=== PATIENT | female | born 1935 | race Caucasian/White ===

== ENCOUNTER 2017-01-06 11:08 | Outpatient (CLI) | payer MEDICARE | END 2017-01-06 11:09 | DX: Z01.812 Encounter for preprocedural laboratory examination (principal) ==

== ENCOUNTER 2017-01-07 08:00 | Outpatient (CLI) | payer MEDICARE | END 2017-01-07 08:01 | disposition home or self-care (01) | DX: D75.89 Other specified diseases of blood and blood-forming organs (principal); Z01.812 Encounter for preprocedural laboratory examination; Z47.2 Encounter for removal of internal fixation device ==

== ENCOUNTER 2017-02-16 06:11 | Inpatient (IN) | payer MEDICARE ==
[2017-02-16] MEDS ORDERED: ceFAZolin 2 GM/50 ML 50 ML IV ONE (07:05)
[2017-02-16] MEDS ORDERED: LACTATED RINGERS 1,000 ML IV ONE ×3 (07:09→09:35)
[2017-02-16] MEDS ORDERED: fentaNYL 100 MCG/2 ML VIAL IVP ONE (08:00)
[2017-02-16] MEDS ORDERED: LIDOCAINE-MPF 2% 5 ML VIAL IM ONE (08:00)
[2017-02-16] MEDS ORDERED: EPINEPHrine 1 MG/ML AMP SUBQ ONE (08:00)
[2017-02-16] MEDS ORDERED: ACETAMINOPHEN 1,000 MG/100 ML VIAL IV ONE (08:00)
[2017-02-16] MEDS ORDERED: MIDAZOLAM 2 MG/2 ML VIAL IVP ONE (08:00)
[2017-02-16] MEDS ORDERED: ePHEDrine 50 MG/ML AMP IVP ONE (08:00)
[2017-02-16] MEDS ORDERED: MORPHINE PF 5 MG/10 ML AMP SUBQ ONE ×2 (08:00)
[2017-02-16] MEDS ORDERED: PROPOFOL 200 MG/20 ML VIAL IVP ONE (08:00)
[2017-02-16] MEDS ORDERED: ROCURONIUM 50 MG/5 ML VIAL IVP ONE (08:00)
[2017-02-16] MEDS ORDERED: GLYCOPYRROLATE 1 MG/5 ML VIAL IVP ONE (08:00)
[2017-02-16] MEDS ORDERED: ROPIVACAINE 0.2% PF 20 ML AMPULE SUBQ ONE (08:01)
[2017-02-16] MEDS ORDERED: KETOROLAC 15 MG/ML VIAL IM ONE (08:01)
[2017-02-16] MEDS ORDERED: BUPIVACAINE 0.5%-EPI 1:200000 PF 30 ML VIAL SUBQ ONE ×2 (08:02)
--- NOTE | 2017-02-16 11:24 | XRAY Report ---
INTRAOPERATIVE RIGHT HIP: 02/16/2017 CLINICAL INDICATION: Hardware removal. FINDINGS: Intraoperative imaging was obtained during right hip hardware removal. One spot image obtained; sixteen seconds of fluoroscopy time was provided to Dr. Starks. IMPRESSION: INTRAOPERATIVE IMAGING OF RIGHT HIP HARDWARE REMOVAL. JOB #: [id number] EXT JOB #:[id number]
[2017-02-16] MEDS ORDERED: BISACODYL 10 MG SUPP PR PRN (12:06)
[2017-02-16] MEDS ORDERED: PROCHLORPERAZINE 10 MG/2 ML VIAL IVP PRN (12:06)
[2017-02-16] MEDS ORDERED: HYDROmorphone 1 MG/ML SYRINGE IVP PRN (12:06)
[2017-02-16] MEDS ORDERED: oxyCOD/ACETAMIN 5 MG/325 MG TABLET PO PRN (12:06)
[2017-02-16] MEDS ORDERED: BISACODYL 5 MG TABLET PO PRN (12:06)
[2017-02-16] MEDS ORDERED: DOCUSATE SODIUM 100 MG CAPSULE PO PRN (12:06)
[2017-02-16] MEDS ORDERED: ACETAMINOPHEN 325 MG TABLET PO PRN (12:06)
[2017-02-16] MEDS ORDERED: diphenhydrAMINE 25 MG CAPSULE PO PRN (12:06)
[2017-02-16] MEDS ORDERED: ONDANSETRON 4 MG/2 ML VIAL IVP PRN (12:06)
--- NOTE | 2017-02-16 12:24 | OPERATIVE REPORT ---
Operative Report - General Admit Date: 02/16/17 Procedure Date: 02/16/17 Planned Procedure: Remove IM Nail Right Femur, Right Total Knee Arthroplasty Pre-Op Diagnosis: Right Knee Osteoarthritis Post Op Diagnosis: Same - Procedure Note Primary Surgeon: Leland Starks MD Anesthesia Provider: Nicole Chand CRNA Anesthesia Technique: General ET tube, Local, Regional block Estimated Blood Loss (in cc): 200 Complications: None. - Other Other Information/Narrative: Implants; Vishal Persona Knee: Size 8 Femoral Component.' Size E Tibial Tray 10 mm PS UHMWPE Tibial Insert 8.5 x 32 mm UHMWPE Patella Button Palacos Cement w/ Gentamycin Fluids: 2800 mL LR. Urine: Adequate. Tourniquet: Right Thigh 2 300 mm Hg x 120 minutes total without complication. Condition: Stable Disposition: PACU >> MedSurg.
[2017-02-16] MEDS: fentaNYL 100 MCG/2 ML VIAL ONE ×2 (12:40→12:45)
--- NOTE | 2017-02-16 13:06 | XRAY Report ---
TWO-VIEW RIGHT KNEE: 02/16/2017 CLINICAL INDICATION: Post-op knee replacement and hardware removal. FINDINGS: Frontal and lateral views of the right knee demonstrate a total knee replacement. Femoral IM gage has been removed. There is no evidence of acute fracture or immediate hardware complication. Subcutaneous gas is noted. IMPRESSION: EXPECTED POSTOPERATIVE APPEARANCE OF RIGHT KNEE REPLACEMENT, WITH RIGHT FEMORAL IM GAGE R CAMERONVAL. JOB #: [id number] EXT JOB #:[id number]
[2017-02-16] MEDS: D5.45NS W/20 MEQ KCL 1,000 ML IV SCH (13:36)
[2017-02-16] MEDS: ACETAMINOPHEN 1,000 MG/100 ML 100 ML IV PRN (13:41)
[2017-02-16] MEDS: SODIUM CHLORIDE FLUSH 0.9% 10 ML SYRINGE IVP SCH ×2 (14:52→22:03)
[2017-02-16] MEDS: ceFAZolin 2 GM/50 ML 50 ML IV SCH (17:01)
[2017-02-17] MEDS: ceFAZolin 2 GM/50 ML 50 ML IV SCH (00:20)
[2017-02-17] MEDS: D5.45NS W/20 MEQ KCL 1,000 ML IV SCH ×2 (00:21→10:22)
[2017-02-17] MEDS: SODIUM CHLORIDE FLUSH 0.9% 10 ML SYRINGE IVP SCH ×3 (06:10→21:19)
[2017-02-17] MEDS: ACETAMINOPHEN 1,000 MG/100 ML 100 ML IV PRN (06:10)
[2017-02-17] MEDS: KETOROLAC 15 MG/ML VIAL IVP PRN ×2 (07:58→17:51)
[2017-02-17 10:05] LABS: HCT - HEMATOCRIT 29.9 % (37.0-47.0); HGB - HEMOGLOBIN 10.2 g/dL (12.0-16.0)
[2017-02-17] MEDS: TIMOLOL 0.25% OPHTH DROPS EACHEYE SCH (10:21)
[2017-02-17] MEDS: ENOXAPARIN 40 MG/0.4 ML SYRINGE SUBQ SCH (10:22)
[2017-02-17] MEDS: SODIUM CHLORIDE FLUSH 0.9% 10 ML SYRINGE IVP PRN (17:52)
[2017-02-17] MEDS: traMADol 50 MG TABLET PO PRN (21:19)
[2017-02-18] MEDS: KETOROLAC 15 MG/ML VIAL IVP PRN ×2 (00:09→11:40)
[2017-02-18] MEDS: SODIUM CHLORIDE FLUSH 0.9% 10 ML SYRINGE IVP PRN (00:10)
[2017-02-18] MEDS: traMADol 50 MG TABLET PO PRN (06:41)
[2017-02-18] MEDS: SODIUM CHLORIDE FLUSH 0.9% 10 ML SYRINGE IVP SCH ×3 (06:41→17:28)
[2017-02-18] MEDS: TIMOLOL 0.25% OPHTH DROPS EACHEYE SCH (10:09)
[2017-02-18] MEDS: ENOXAPARIN 40 MG/0.4 ML SYRINGE SUBQ SCH (10:12)
[2017-02-18] MEDS: SENNA 8.6 MG TABLET PO PRN (17:25)
[2017-02-18] MEDS: TIMOLOL OPTH EACHEYE SCH (17:28)
[2017-02-18] MEDS: DORZOLAMIDE EACHEYE SCH (17:28)
[2017-02-19] MEDS: traMADol 50 MG TABLET PO PRN ×3 (02:40→17:12)
[2017-02-19] MEDS: KETOROLAC 15 MG/ML VIAL IVP PRN (05:53)
[2017-02-19] MEDS: SODIUM CHLORIDE FLUSH 0.9% 10 ML SYRINGE IVP SCH ×3 (05:53→21:50)
[2017-02-19] MEDS: SODIUM CHLORIDE FLUSH 0.9% 10 ML SYRINGE IVP PRN (05:54)
[2017-02-19] MEDS: ENOXAPARIN 40 MG/0.4 ML SYRINGE SUBQ SCH (08:52)
[2017-02-19] MEDS: SENNA 8.6 MG TABLET PO PRN ×2 (08:52→21:48)
[2017-02-19] MEDS: TIMOLOL OPTH EACHEYE SCH ×2 (08:57→21:49)
[2017-02-19] MEDS: DORZOLAMIDE EACHEYE SCH ×2 (08:57→21:49)
--- NOTE | 2017-02-19 14:04 | PROVIDER PROGRESS NOTE ---
Subjective - Prog Note Date Prog Note Date: 02/19/17 Prog Note Time: 14:02 - Subjective Pt reports feeling: Improved (Pain well controlled. Up with PT. Would like to go home after PT tomorrow morning.) Objective - Vital Signs/Intake & Output Reviewed Vital Signs: Yes Vital Signs: Vital Signs x48h Temp Pulse Resp BP Pulse Ox 02/19/17 13:22 36.7 C 83 16 111/69 96 02/19/17 08:47 37.0 C 82 18 108/69 96 Intake & Output: Intake & Output 02/16/17 02/17/17 02/18/17 02/19/17 23:59 23:59 23:59 23:59 Intake Total 3306 1956 1060 960 Output Total 900 1475 2050 1400 Balance 2406 353 -929 -428 - Objective General Appearance: positive: No acute distress, Alert Eyes Bilateral: positive: Normal inspection ENT: positive: ENT inspection nml Neck: positive: Nml inspection Respiratory: positive: No respiratory distress, Breath sounds nml Cardiovascular: positive: Regular rate & rhythm Peripheral Pulses: 2+ Dorsalis pedis (R), 2+ Dorsalis pedis (L), 2+ Posterior tibialis (R), 2+ Posterior tibialis (L) Abdomen: positive: Non-tender, Nml bowel sounds, No distention. negative: Guarding Back: positive: Nml inspection Skin: positive: Color nml, No rash, Warm, Dry Extremities: positive: Other (Wound CDI.). negative: Calf tenderness, Cinthia's sign/cords - Lab Results Fish Bones: 02/17/17 09:00 Assessment/Plan - Problem List (2) Aftercare following knee joint replacement surgery Impression: Stable Qualifiers: Laterality: left Qualified Code(s): Z47.1 - Aftercare following joint replacement surgery; Z96.652 - Presence of left artificial knee joint (3) Glaucoma Qualifiers: Glaucoma type: open-angle Open angle glaucoma type: unspecified type Laterality: bilateral Glaucoma stage: moderate stage Qualified Code(s): H40.10X2 - Unspecified open-angle glaucoma, moderate stage
--- NOTE | 2017-02-19 14:14 | Discharge Plan ---
Discharge Plan Disposition: 01 Home, Self Care Condition: Good Prescriptions: Enoxaparin [Lovenox] 40 mg SUBQ DAILY #28 syringe traMADol [Ultram] 50 mg PO Q4HR PRN #60 tablet PRN Reason: Pain Diet: Regular Activity Restrictions: Wt Bearing as Tolerated Shower Restrictions: Yes (Keep wound clean and dry.) Driving Restrictions: Yes Weight Bearing: Full Weight Follow-Up Care: Outpatient Rehab - PT (Evaluate and Treat. Total Knee Replacement protocol. WBAT RLE.) No Smoking: If you smoke, Please STOP! Call for help. Follow-up with: Isidro Triana MD [Primary Care Provider] - Leland Starks MD [Provider Admit Priv/Credential] -
[2017-02-20] MEDS: SODIUM CHLORIDE FLUSH 0.9% 10 ML SYRINGE IVP PRN (00:21)
[2017-02-20] MEDS: KETOROLAC 15 MG/ML VIAL IVP PRN ×2 (00:21→10:41)
[2017-02-20] MEDS: SODIUM CHLORIDE FLUSH 0.9% 10 ML SYRINGE IVP SCH ×2 (06:14→09:52)
[2017-02-20] MEDS: traMADol 50 MG TABLET PO PRN (06:14)
[2017-02-20] MEDS: SENNA 8.6 MG TABLET PO PRN (06:14)
[2017-02-20 08:36] VITALS: BP 113/66
[2017-02-20] MEDS: TIMOLOL OPTH EACHEYE SCH (09:52)
[2017-02-20] MEDS: DORZOLAMIDE EACHEYE SCH (09:52)
[2017-02-20] MEDS: ENOXAPARIN 40 MG/0.4 ML SYRINGE SUBQ SCH (09:53)
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
--- NOTE | 2017-03-26 14:21 | XRAY Report ---
[facility]: Fluoroscopy time only, no images submitted for interpretation. Fluoroscopy time 0 minutes, 16 seconds. CARMELINAD
== END 2017-02-20 12:10 | disposition home or self-care (01) | DRG 470 ==
LOC: MS 06:11
PROVIDERS: ADMIT Orthopaedic Surgery; ATTEND Orthopaedic Surgery
PROC: 0QPB04Z Removal of Internal Fixation Device from Right Lower Femur, Open Approach (ICD-10-PCS; 2017-02-16)
PROC: 0SRC0J9 Replacement of Right Knee Joint with Synthetic Substitute, Cemented, Open Approach (ICD-10-PCS; principal; 2017-02-16 07:30)
DX: M17.11 Unilateral primary osteoarthritis, right knee (principal); T84.84XD Pain due to internal orthopedic prosthetic devices, implants and grafts, subsequent encounter; R26.9 Unspecified abnormalities of gait and mobility; H40.10X2 Unspecified open-angle glaucoma, moderate stage; Z87.891 Personal history of nicotine dependence; Z87.81 Personal history of (healed) traumatic fracture
CPT/HCPCS: 36415; 76000; 85014; 85018

== ENCOUNTER 2017-02-23 19:41 | Outpatient (CLI) | payer MEDICARE ==
--- NOTE | 2017-02-23 22:01 | Ultrasound Preliminary Report ---
Exam: US Duplex Ext Veins Right IMPRESSION: No evidence for deep venous thrombosis. [facility] SITE ID: [id number]
--- NOTE | 2017-02-23 22:04 | Ultrasound Report ---
EXAM: RIGHT LOWER EXTREMITY VENOUS ULTRASOUND EXAM DATE: 02/23/2017 09:48 PM. CLINICAL HISTORY: RIGHT LEG AND THIGH SWELLING POST OP. COMPARISON: None. TECHNIQUE: Real-time sonographic vascular imaging was performed by the cost report clerk through the lower extremity utilizing both color-flow and Doppler spectral analysis. Multiple client representative static yari ges were saved for review. FINDINGS: Common Femoral Vein (CFV): Normal. CFV-GSV Junction: Normal. Profunda Femoral Vein (PFV): Normal. Femoral Vein (FV) Prox: Normal. Femoral Vein (FV) Mid: Normal. Femoral Vein (FV) Dist: Limited visualization. Popliteal Vein: Limited visualization. Posterior Tibial Veins: Limited visualization. Peroneal Veins: Nonvisualized. Other: None. IMPRESSION: No evidence for deep venous thrombosis. [facility] Referring Provider Line: [phone] SITE ID: [id number]
== END 2017-02-23 19:42 | disposition home or self-care (01) ==
LOC: DI 19:41
PROVIDERS: ATTEND Orthopaedic Surgery
DX: R22.41 Localized swelling, mass and lump, right lower limb (principal)

== ENCOUNTER 2017-04-28 16:15 | Outpatient (CLI) | payer MEDICARE | END 2017-04-28 16:16 | disposition home or self-care (01) | LOC: LAB.R 16:15 | PROVIDERS: ATTEND Orthopaedic Surgery | DX: S91.301A Unspecified open wound, right foot, initial encounter (principal) | CPT/HCPCS: 87070; 87205 ==

== ENCOUNTER 2017-05-08 08:20 | Day surgery (SDC) | payer MEDICARE ==
[2017-05-08] MEDS ORDERED: VANCOMYCIN INJ 1 GM in SODIUM CHLORIDE 0.9% 250 ML IV SCH (09:00)
[2017-05-08] MEDS ORDERED: ceFAZolin 2 GM/50 ML 50 ML IV ONE (09:15)
[2017-05-08 09:27] LABS: BASOPHILS # (AUTO) 0.1 10^3/uL (0.0-0.1); BASOPHILS % (AUTO) 1.2 %; EOSINOPHILS # (AUTO) 0.2 10^3/uL (0.0-0.7); EOSINOPHILS % (AUTO) 4.2 %; HCT - HEMATOCRIT 38.6 % (37.0-47.0); HGB - HEMOGLOBIN 13.2 g/dL (12.0-16.0); LYMPHOCYTES # (AUTO) 0.9 10^3/uL (1.5-3.5); LYMPHOCYTES % (AUTO) 16.7 %; MEAN CORPUSCULAR HEMOGLOBIN 33.2 pg (27.0-31.0); MEAN CORPUSCULAR HGB CONC 34.1 g/dL (32.0-36.0); MEAN CORPUSCULAR VOLUME 97.5 fL (81.0-99.0); MONOCYTES # (AUTO) 0.5 10^3/uL (0.0-1.0); MONOCYTES % (AUTO) 9.6 %; NEUTROPHILS # (AUTO) 3.6 10^3/uL (1.5-6.6); NEUTROPHILS % (AUTO) 68.3 %; NUCLEATED RED BLOOD CELLS AUTO 0.1 /100WBC; RED BLOOD COUNT 3.96 10^6/uL (4.20-5.40); RED CELL DISTRIBUTION WIDTH 12.7 % (12.0-15.0); UNCORRECTED WHITE BLOOD COUNT 5.3 x10^3/uL; WHITE BLOOD COUNT 5.3 x10^3/uL (4.8-10.8)
[2017-05-08] MEDS ORDERED: LACTATED RINGERS 1,000 ML IV ONE ×2 (09:31→12:00)
[2017-05-08] MEDS ORDERED: KETOROLAC 30 MG/ML VIAL IVP ONE (11:20)
[2017-05-08] MEDS ORDERED: ONDANSETRON 4 MG/2 ML VIAL IVP ONE (11:20)
[2017-05-08] MEDS ORDERED: ePHEDrine 50 MG/ML AMP IVP ONE (11:20)
[2017-05-08] MEDS ORDERED: PROPOFOL 200 MG/20 ML VIAL IVP ONE (11:20)
[2017-05-08] MEDS ORDERED: PHENYLEPHRINE 10 MG/ML VIAL IV ONE (11:20)
[2017-05-08] MEDS ORDERED: MIDAZOLAM 2 MG/2 ML VIAL IVP ONE (11:20)
[2017-05-08] MEDS ORDERED: LIDOCAINE-MPF 2% 5 ML VIAL IM ONE (11:20)
[2017-05-08] MEDS ORDERED: fentaNYL 100 MCG/2 ML VIAL IVP ONE (11:20)
[2017-05-08] MEDS ORDERED: DEXAMETHASONE 4 MG/ML VIAL IVP ONE (11:20)
[2017-05-08] MEDS ORDERED: ACETAMINOPHEN 1,000 MG/100 ML 100 ML IV ONE (12:13)
[2017-05-08] MEDS: HYDROmorphone 1 MG/ML CARPUJECT ONE ×2 (12:16→12:23)
--- NOTE | 2017-05-08 14:14 | XRAY Report ---
INTRAOPERATIVE RIGHT CALCANEUS: 05/08/2017 CLINICAL INDICATION: Hardware removal. FINDINGS: A single cross-table lateral view of the right calcaneus was obtained intraoperatively. Three screws are again noted. IMPRESSION: INTRAOPERATIVE IMAGING OF THE RIGHT CALCANEUS. FLUOROSCOPY TIME: [address] HEDRICK; 1 SPOT IMAGE OBTAINED. HANK
[2017-05-08 15:23] VITALS: BP 107/58
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
== END 2017-05-08 08:21 | disposition home or self-care (01) ==
LOC: SDS 08:20 → EDSTATUS 11:30
PROVIDERS: ATTEND Orthopaedic Surgery
PROC: 0QBL0ZZ Excision of Right Tarsal, Open Approach (ICD-10-PCS; principal; 2017-05-08 09:30)
DX: M86.8X7 Other osteomyelitis, ankle and foot (principal); S92.001S Unspecified fracture of right calcaneus, sequela; T81.4XXA Infection following a procedure, initial encounter; Z96.651 Presence of right artificial knee joint
CPT/HCPCS: 11044; 73650; 85025; 85651; 86140; 87070; 87205; J0131; J0690; J1170; J3370; J7120

== ENCOUNTER 2017-08-04 13:42 | Day surgery (SDC) | payer MEDICARE ==
[2017-08-04 14:03] VITALS: BP 148/84
--- NOTE | 2017-08-05 17:40 | XRAY Report ---
FRONTAL CHEST: 08/04/2017 CLINICAL INDICATION: PICC placement. Frontal view of the chest demonstrates mildly enlarged cardiac silhouette. Right arm PICC terminates in the right atrium, approximately 6 cm past the cavoatrial junction. The lungs are clear. Orthopedic hardware is noted in the left clavicle and right humeral head. IMPRESSION: RIGHT ARM PICC TERMINATING IN THE RIGHT ATRIUM. JOB #: [id number] EXT JOB #: [id number] [facility]
--- NOTE | 2017-08-05 17:42 | XRAY Report ---
FRONTAL CHEST: 08/04/2017 CLINICAL INDICATION: PICC repositioning. COMPARISON: Film of 1524 hours. Frontal view of the chest demonstrates repositioning of the right PICC, now terminating in the distal superior vena cava. There has been no other significant interval change. IMPRESSION: RIGHT ARM PICC NOW TERMINATING IN THE DISTAL SUPERIOR VENA CAVA. JOB #: [id number] EXT JOB #: [id number] [facility]
== END 2017-08-04 13:43 | disposition home or self-care (01) ==
LOC: SDS 13:42
PROVIDERS: ATTEND Nurse Anesthetist, Certified Registered
PROC: 02HV33Z Insertion of Infusion Device into Superior Vena Cava, Percutaneous Approach (ICD-10-PCS; principal; 2017-08-04 14:00)
DX: M86.9 Osteomyelitis, unspecified (principal)
CPT/HCPCS: 36569; C1751; 71010

== ENCOUNTER 2017-08-13 12:57 | Outpatient (CLI) | payer MEDICARE ==
[2017-08-13 10:20] LABS: BASOPHILS # (AUTO) 0.1 10^3/uL (0.0-0.1); BASOPHILS % (AUTO) 1.3 %; EOSINOPHILS # (AUTO) 0.2 10^3/uL (0.0-0.7); EOSINOPHILS % (AUTO) 4.3 %; HGB - HEMOGLOBIN 13.5 g/dL (12.0-16.0); LYMPHOCYTES # (AUTO) 1.2 10^3/uL (1.5-3.5); MEAN CORPUSCULAR HEMOGLOBIN 34.4 pg (27.0-31.0); MEAN CORPUSCULAR HGB CONC 34.7 g/dL (32.0-36.0); MONOCYTES # (AUTO) 0.3 10^3/uL (0.0-1.0); MONOCYTES % (AUTO) 7.5 %; NEUTROPHILS # (AUTO) 2.4 10^3/uL (1.5-6.6); NEUTROPHILS % (AUTO) 58.9 %; RED BLOOD COUNT 3.94 10^6/uL (4.20-5.40); RED CELL DISTRIBUTION WIDTH 13.1 % (12.0-15.0); UNCORRECTED WHITE BLOOD COUNT 4.1 x10^3/uL; WHITE BLOOD COUNT 4.1 x10^3/uL (4.8-10.8)
[2017-08-13 10:49] LABS: BUN - BLOOD UREA NITROGEN 23 mg/dL (6-20); CALCIUM 9.1 mg/dL (8.5-10.3); CARBON DIOXIDE - CO2 27 mmol/L (21-32); CHLORIDE 105 mmol/L (101-111); CREATININE 0.5 mg/dL (0.4-1.0); GFR - MDRD 119 (>89); GLUCOSE 91 mg/dL (70-100); POTASSIUM 4.1 mmol/L (3.5-5.0); SODIUM 140 mmol/L (135-145)
== END 2017-08-13 12:58 | disposition home or self-care (01) ==
LOC: LAB.R 12:57
PROVIDERS: ATTEND Internal Medicine
DX: M86.9 Osteomyelitis, unspecified (principal)
CPT/HCPCS: 80048; 85025; 85651; 86140

== ENCOUNTER 2017-08-19 14:57 | Outpatient (CLI) | payer MEDICARE ==
[2017-08-19 10:29] LABS: BASOPHILS % (AUTO) 1.3 %; EOSINOPHILS # (AUTO) 0.2 10^3/uL (0.0-0.7); EOSINOPHILS % (AUTO) 6.6 %; HCT - HEMATOCRIT 39.8 % (37.0-47.0); HGB - HEMOGLOBIN 13.7 g/dL (12.0-16.0); LYMPHOCYTES # (AUTO) 0.9 10^3/uL (1.5-3.5); LYMPHOCYTES % (AUTO) 24.9 %; MEAN CORPUSCULAR HEMOGLOBIN 34.7 pg (27.0-31.0); MEAN CORPUSCULAR HGB CONC 34.5 g/dL (32.0-36.0); MEAN CORPUSCULAR VOLUME 100.5 fL (81.0-99.0); MEAN PLATELET VOLUME 8.9 fL (7.9-10.8); MONOCYTES # (AUTO) 0.3 10^3/uL (0.0-1.0); MONOCYTES % (AUTO) 9.2 %; NEUTROPHILS # (AUTO) 2.1 10^3/uL (1.5-6.6); NUCLEATED RED BLOOD CELLS AUTO 0.1 /100WBC; RED BLOOD COUNT 3.96 10^6/uL (4.20-5.40); RED CELL DISTRIBUTION WIDTH 13.2 % (12.0-15.0); UNCORRECTED WHITE BLOOD COUNT 3.5 x10^3/uL; WHITE BLOOD COUNT 3.5 x10^3/uL (4.8-10.8)
[2017-08-19 10:46] LABS: BUN - BLOOD UREA NITROGEN 17 mg/dL (6-20); CALCIUM 9.5 mg/dL (8.5-10.3); CARBON DIOXIDE - CO2 26 mmol/L (21-32); CHLORIDE 103 mmol/L (101-111); CREATININE 0.5 mg/dL (0.4-1.0); GFR - MDRD 119 (>89); GLUCOSE 95 mg/dL (70-100); POTASSIUM 4.1 mmol/L (3.5-5.0); SODIUM 140 mmol/L (135-145)
== END 2017-08-19 14:58 | disposition home or self-care (01) ==
LOC: LAB.R 14:57
PROVIDERS: ATTEND Internal Medicine Infectious Disease
DX: M86.9 Osteomyelitis, unspecified (principal)
CPT/HCPCS: 80048; 85025; 85651; 86140

== ENCOUNTER 2017-08-26 14:48 | Outpatient (CLI) | payer MEDICARE ==
[2017-08-26 10:53] LABS: BASOPHILS # (AUTO) 0.1 10^3/uL (0.0-0.1); BASOPHILS % (AUTO) 1.6 %; EOSINOPHILS # (AUTO) 0.3 10^3/uL (0.0-0.7); EOSINOPHILS % (AUTO) 8.2 %; HCT - HEMATOCRIT 39.8 % (37.0-47.0); HGB - HEMOGLOBIN 13.7 g/dL (12.0-16.0); LYMPHOCYTES # (AUTO) 0.9 10^3/uL (1.5-3.5); LYMPHOCYTES % (AUTO) 25.1 %; MEAN CORPUSCULAR HEMOGLOBIN 34.5 pg (27.0-31.0); MEAN CORPUSCULAR HGB CONC 34.3 g/dL (32.0-36.0); MEAN CORPUSCULAR VOLUME 100.4 fL (81.0-99.0); MEAN PLATELET VOLUME 9.1 fL (7.9-10.8); MONOCYTES # (AUTO) 0.3 10^3/uL (0.0-1.0); MONOCYTES % (AUTO) 8.2 %; NEUTROPHILS # (AUTO) 1.9 10^3/uL (1.5-6.6); NEUTROPHILS % (AUTO) 56.9 %; NUCLEATED RED BLOOD CELLS AUTO 0.1 /100WBC; RED BLOOD COUNT 3.96 10^6/uL (4.20-5.40); RED CELL DISTRIBUTION WIDTH 12.8 % (12.0-15.0); UNCORRECTED WHITE BLOOD COUNT 3.4 x10^3/uL; WHITE BLOOD COUNT 3.4 x10^3/uL (4.8-10.8)
[2017-08-26 11:06] LABS: BUN - BLOOD UREA NITROGEN 20 mg/dL (6-20); CALCIUM 8.9 mg/dL (8.5-10.3); CARBON DIOXIDE - CO2 26 mmol/L (21-32); CHLORIDE 106 mmol/L (101-111); CREATININE 0.5 mg/dL (0.4-1.0); GFR - MDRD 119 (>89); GLUCOSE 88 mg/dL (70-100); POTASSIUM 4.2 mmol/L (3.5-5.0); SODIUM 137 mmol/L (135-145)
== END 2017-08-26 14:49 | disposition home or self-care (01) ==
LOC: LAB.R 14:48
PROVIDERS: ATTEND Internal Medicine Infectious Disease
DX: M86.9 Osteomyelitis, unspecified (principal)
CPT/HCPCS: 80048; 85025; 85651; 86140

== ENCOUNTER 2017-09-02 08:00 | Outpatient (CLI) | payer MEDICARE ==
[2017-09-02 11:34] LABS: BUN - BLOOD UREA NITROGEN 25 mg/dL (6-20); CREATININE 0.5 mg/dL (0.4-1.0); GFR - MDRD 119 (>89)
== END 2017-09-02 08:01 ==
LOC: LAB.R 08:00
PROVIDERS: ATTEND Internal Medicine Infectious Disease
DX: M86.9 Osteomyelitis, unspecified (principal)
CPT/HCPCS: 82565; 84520

== ENCOUNTER 2017-09-09 08:30 | Outpatient (CLI) | payer MEDICARE ==
[2017-09-09 10:32] LABS: BASOPHILS % (AUTO) 1.2 %; EOSINOPHILS # (AUTO) 0.2 10^3/uL (0.0-0.7); EOSINOPHILS % (AUTO) 5.7 %; HGB - HEMOGLOBIN 13.6 g/dL (12.0-16.0); LYMPHOCYTES # (AUTO) 0.9 10^3/uL (1.5-3.5); LYMPHOCYTES % (AUTO) 21.6 %; MEAN CORPUSCULAR HEMOGLOBIN 33.9 pg (27.0-31.0); MEAN CORPUSCULAR VOLUME 99.7 fL (81.0-99.0); MONOCYTES # (AUTO) 0.3 10^3/uL (0.0-1.0); MONOCYTES % (AUTO) 7.5 %; NEUTROPHILS # (AUTO) 2.6 10^3/uL (1.5-6.6); PLT - PLATELET COUNT 248 10^3/uL (130-450); RED BLOOD COUNT 4.02 10^6/uL (4.20-5.40); RED CELL DISTRIBUTION WIDTH 12.6 % (12.0-15.0)
[2017-09-09 10:50] LABS: BUN - BLOOD UREA NITROGEN 21 mg/dL (6-20); CALCIUM 9.1 mg/dL (8.5-10.3); CARBON DIOXIDE - CO2 26 mmol/L (21-32); CHLORIDE 107 mmol/L (101-111); CREATININE 0.5 mg/dL (0.4-1.0); GFR - MDRD 119 (>89); GLUCOSE 123 mg/dL (70-100); SODIUM 139 mmol/L (135-145); VANCOMYCIN,TROUGH 12.7 ug/mL (5.0-15.0)
[2017-09-09 10:51] LABS: CRP - C-REACTIVE PROTEIN < 1.0 mg/dL (0-1.0)
== END 2017-09-09 08:31 | disposition home or self-care (01) ==
LOC: LAB.R 08:30
PROVIDERS: ATTEND Internal Medicine Infectious Disease
DX: M86.9 Osteomyelitis, unspecified (principal)
CPT/HCPCS: 80048; 85025; 85651; 86140

== ENCOUNTER 2017-09-12 08:00 | Outpatient (CLI) | payer MEDICARE ==
[2017-09-12 09:25] LABS: BASOPHILS % (AUTO) 1.3 %; EOSINOPHILS # (AUTO) 0.2 10^3/uL (0.0-0.7); EOSINOPHILS % (AUTO) 5.6 %; HGB - HEMOGLOBIN 13.7 g/dL (12.0-16.0); LYMPHOCYTES # (AUTO) 0.8 10^3/uL (1.5-3.5); LYMPHOCYTES % (AUTO) 22.8 %; MEAN CORPUSCULAR HEMOGLOBIN 34.2 pg (27.0-31.0); MEAN CORPUSCULAR HGB CONC 34.4 g/dL (32.0-36.0); MEAN CORPUSCULAR VOLUME 99.2 fL (81.0-99.0); MEAN PLATELET VOLUME 8.7 fL (7.9-10.8); MONOCYTES # (AUTO) 0.4 10^3/uL (0.0-1.0); MONOCYTES % (AUTO) 10.4 %; NEUTROPHILS # (AUTO) 2.1 10^3/uL (1.5-6.6); NEUTROPHILS % (AUTO) 59.9 %; PLT - PLATELET COUNT 228 10^3/uL (130-450); RED CELL DISTRIBUTION WIDTH 12.2 % (12.0-15.0); WHITE BLOOD COUNT 3.5 x10^3/uL (4.8-10.8)
[2017-09-12 10:01] LABS: BUN - BLOOD UREA NITROGEN 23 mg/dL (6-20); CALCIUM 8.7 mg/dL (8.5-10.3); CARBON DIOXIDE - CO2 25 mmol/L (21-32); CHLORIDE 104 mmol/L (101-111); CREATININE 0.4 mg/dL (0.4-1.0); GFR - MDRD 154 (>89); GLUCOSE 93 mg/dL (70-100); SODIUM 139 mmol/L (135-145); VANCOMYCIN,TROUGH 19.4 ug/mL (5.0-15.0)
[2017-09-12 10:02] LABS: CRP - C-REACTIVE PROTEIN < 1.0 mg/dL (0-1.0)
== END 2017-09-12 08:01 | disposition home or self-care (01) ==
LOC: LAB.R 08:00
PROVIDERS: ATTEND Internal Medicine Infectious Disease
DX: M86.9 Osteomyelitis, unspecified (principal)
CPT/HCPCS: 80048; 85025; 85651; 86140

== ENCOUNTER 2017-09-16 21:33 | Outpatient (CLI) | payer MEDICARE ==
[2017-09-16 10:27] LABS: BASOPHILS % (AUTO) 1.3 %; EOSINOPHILS # (AUTO) 0.2 10^3/uL (0.0-0.7); EOSINOPHILS % (AUTO) 8.4 %; HGB - HEMOGLOBIN 13.5 g/dL (12.0-16.0); LYMPHOCYTES # (AUTO) 0.7 10^3/uL (1.5-3.5); LYMPHOCYTES % (AUTO) 23.2 %; MEAN CORPUSCULAR HGB CONC 34.3 g/dL (32.0-36.0); MEAN CORPUSCULAR VOLUME 99.2 fL (81.0-99.0); MONOCYTES # (AUTO) 0.3 10^3/uL (0.0-1.0); MONOCYTES % (AUTO) 10.1 %; NEUTROPHILS # (AUTO) 1.7 10^3/uL (1.5-6.6); PLT - PLATELET COUNT 215 10^3/uL (130-450); RED BLOOD COUNT 3.96 10^6/uL (4.20-5.40); RED CELL DISTRIBUTION WIDTH 12.2 % (12.0-15.0)
[2017-09-16 10:40] LABS: BUN - BLOOD UREA NITROGEN 16 mg/dL (6-20); CARBON DIOXIDE - CO2 21 mmol/L (21-32); CHLORIDE 106 mmol/L (101-111); CREATININE 0.4 mg/dL (0.4-1.0); CRP - C-REACTIVE PROTEIN < 1.0 mg/dL (0-1.0); GFR - MDRD 154 (>89); GLUCOSE 94 mg/dL (70-100); SODIUM 140 mmol/L (135-145)
== END 2017-09-16 21:34 | disposition home or self-care (01) ==
LOC: LAB.R 21:33
PROVIDERS: ATTEND Internal Medicine Infectious Disease
DX: M86.9 Osteomyelitis, unspecified (principal)
CPT/HCPCS: 80048; 85025; 85651; 86140